=== PATIENT | male | born 1940 | race Caucasian/White ===

== ENCOUNTER → 2022-05-20 14:57 | Outpatient (CLI) | payer OTHER, SELFPAY ==
--- NOTE | 2022-05-20 | DI.CT.S_ITS ---
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 Sagittal and coronal reformats were then constructed. For radiation dose reduction, the following was used: automated exposure control. COMPARISON: [facility], , CT L SPINE WITHOUT CONTRAST, 07/08/2021, 11:10. FINDINGS: Image quality: Excellent. Bones: There is generalized osteopenia. Exaggerated thoracic kyphosis is noted. Moderate to severe compression deformities at the T9, T10, T12, L1, and L2 levels. There is retropulsion of bony fragments measuring up to 6 mm into the spinal canal at the superior aspect of L1, and possibly at L2 to a lesser extent. No other significant osseous retropulsion is seen. This results in moderate narrowing of the bony spinal canal at the T12-L1 level. No definite osteolytic or osteoblastic lesion is seen. Soft tissues: No paravertebral masses or hematomas. Visualized posteromedial lungs appear clear. Circumscribed hypodense lesion in the included lateral left hepatic lobe is most likely a cyst. Cardiac pacemaker leads are partially imaged. Coronary artery calcifications or coronary artery stents are present. IMPRESSION: Multiple moderate to severe vertebral body compression fractures involving T9-T10 and T12-L2. There is approximately 6 mm retropulsion of osseous fragments at the L1 level with moderate narrowing of the bony spinal canal. Compression fractures are of indeterminate age, but the more inferior fractures are new when compared to the lumbar spine CT from 07/08/2021. No definite lytic or blastic osseous lesion identified. Dictated by: Loco Alberto M.D. on 05/20/2022 at 16:22 Approved by: Loco Alberto M.D. on 05/20/2022 at 16:59
--- NOTE | 2022-05-20 15:02 | DI.MRI.S_ITS ---
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 COMPARISON: [facility], CT, CT THORACIC SPINE WO CON, 05/20/2022, 15:30. FINDINGS: Image quality: Excellent. Multiple mid to lower thoracic spine compression fractures results in exaggerated kyphosis. Vertebral body height and alignment is otherwise well maintained. Spinal cord has appropriate signal throughout. No paraspinal mass. As noted on the prior CT, there are compression fractures at T9, T10, T12, L1, L2. There is approximately 90% height loss at T9, 50% height loss at T10. Retropulsed fracture fragment at L1 is again noted. There is marrow edema present. No significant retropulsed fracture fragment at T9 or T10. There is a retropulsed fracture fragment at L1 in resulting in moderate central stenosis without cord compression. Degenerative disc disease results in mild central stenosis at T10-11, T11-12. IMPRESSION: Acute to subacute compression fractures at T9, T10, T12, L1 and L 2 with retropulsed fracture fragment at L1 resulting in moderate central stenosis without cord compression Approved by: Serafin Funez M.D. on 05/23/2022 at 10:53
--- NOTE | 2022-05-20 15:03 | DI.MRI.S_ITS ---
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 In cases with scoliosis, additional coronal T2 fast spin echo may be performed. COMPARISON: [facility], RG, CT L SPINE WITHOUT CONTRAST, 07/08/2021, 11:10. [facility], CT, CT LUMBAR SPINE WO CON, 05/20/2022, 15:30. FINDINGS: Image quality: Excellent. Alignment and Curvature: There is normal bony alignment. Bone Marrow: Large cystic structure in the S1 vertebral body is again noted with vertebral body height loss consistent with pathologic compression fracture. Edema in the T12, L1 and L2 compression fractures consistent with subacute fractures, probably osteopenic. Additionally a, there is fatty marrow replacement in the visualized S2 and S3 vertebral bodies such may reflect radiation therapy. Spinal Cord: Conus medullaris terminates at the L1 level. Visualized cord demonstrates normal signal and size. Paraspinous Soft Tissues: No paravertebral masses. T12-L1: Retropulsed fracture fragment at L1 results in moderate canal stenosis without cord compression. Moderate bilateral foraminal stenosis present. L1-L2: Retropulsed fracture fragment at L2 results in mild central stenosis. Moderate left and mild right foraminal stenosis present. L2-L3: Disc space is preserved. Mild circumferential disc bulge with mild central stenosis present. Moderate left and mild right foraminal stenosis related to hypertrophic facet joints. L3-L4: Disc space is preserved. Circumferential disc bulge, hypertrophic facet joints and ligamentum flavum laxity results in moderate to severe central stenosis. Moderate left and mild right foraminal stenosis L4-L5: A disc space is preserved. Circumferential disc bulge with hypertrophic facet joints and ligamentum flavum laxity results in severe central stenosis. Severe left and mild right foraminal stenosis L5-S1: Disc space is preserved. Posterior disc bulge and ligamentum flavum laxity results in moderate central stenosis. Moderate bilateral foraminal stenosis. IMPRESSION: 1. S1 cystic lesion with compression fracture, probably reflects with pathologic compression fracture. 2. T12, L1 and L2 compression fractures are stable from the prior with marrow edema limited to the superior endplates, more consistent with osteopenic compression fractures. Retropulsed fracture fragment at L1 results in moderate central stenosis. 3. Multilevel degenerative disc disease and arthropathy results in moderate to severe L3-4 and severe L4-5 central stenosis. Approved by: Serafin Funez M.D. on 05/23/2022 at 10:45
--- NOTE | 2022-05-20 15:04 | DI.CT.S_ITS ---
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 Sagittal and coronal reformats were constructed. For radiation dose reduction, the following was used: automated exposure control. COMPARISON: [facility], , CT L SPINE WITHOUT CONTRAST, 07/08/2021, 11:10. FINDINGS: Image quality: Excellent. Bones: Severe generalized osteopenia. Moderate to severe compression deformities at T12, L1, and L2 are new when compared to the lumbar spine CT from 07/08/2021. Retropulsion of bony fragments is seen at the superior aspect of L1 measuring approximately 6 mm. There is also approximately 3 mm retropulsion of bony fragment of the superior aspect of L2. Lucency is again seen within the S1 vertebral body with new superimposed superior endplate compression fracture and loss of vertebral body height. There is normal bony alignment. No acute vertebral body compression fractures. No suspicious lytic or blastic bony lesions. No pars defects. T12-L1: Retropulsion of L1 fracture fragment results in moderate narrowing of the bony spinal canal that is eccentric towards the left. There is moderate bilateral neural foraminal narrowing. L1-L2: Mild retropulsion of L2 fracture fragment is seen that is eccentric towards the left and results in mild narrowing of the bony spinal canal there is mild to moderate narrowing of the bilateral neural foramina. L2-L3: Mild circumferential disc bulging and mild facet hypertrophy, which result in mild narrowing of the spinal canal as well as mild to moderate bilateral neural foraminal narrowing. L3-L4: Mild circumferential disc bulging as well as mild bilateral facet hypertrophy and buckling of the ligamentum flavum, which result in unchanged moderate to severe narrowing of the spinal canal as well as moderate bilateral neural foraminal narrowing. L4-L5: Circumferential disc bulging as well as facet hypertrophy and buckling of the ligamentum flavum result in moderate to severe narrowing of the spinal canal as well as moderate to severe left and moderate right neural foraminal narrowing. L5-S1: Circumferential disc bulging is seen as well as mild bilateral facet hypertrophy and buckling of the ligamentum flavum. Findings result in moderate narrowing of the spinal canal and moderate to severe left and moderate right neural foraminal narrowing. Soft tissues: No retroperitoneal masses or hematomas. Visualized aorta is normal in caliber. IMPRESSION: 1. New moderate to severe compression fractures at T12 through L2. Retropulsion of osseous fragments is seen at the superior L1 level measuring 6 mm and the superior L2 level measuring 3 mm. 2. Pathologic compression fracture of the S1 vertebral body is new when compared to the CT from 07/08/2021, with mild loss of vertebral body height. Lucent lesion is again seen throughout the majority of the S1 vertebral body. 3. New moderate spinal canal narrowing is seen at the level of the L1 compression fracture. Additional multilevel degenerative disc disease and facet hypertrophy is again seen that result in multifocal spinal canal stenosis that is most severe at the L4-5 level, but is not significantly changed when compared to the CT from 07/08/2021. 4. Multilevel neural foraminal narrowing is again seen that has progressed at the T12-L1 and L1-2 levels. Dictated by: Loco Alberto M.D. on 05/20/2022 at 16:32 Approved by: Loco Alberto M.D. on 05/20/2022 at 16:57
== END ==
PROVIDERS: PCP Physician Assistant; Referring Provider Anesthesiology; Visit Provider Anesthesiology
DX: M48.55XA Collapsed vertebra, not elsewhere classified, thoracolumbar region, initial encounter for fracture (principal); M54.50 Low back pain, unspecified; M48.56XA Collapsed vertebra, not elsewhere classified, lumbar region, initial encounter for fracture; M84.48XA Pathological fracture, other site, initial encounter for fracture; M51.36 Other intervertebral disc degeneration, lumbar region; C79.9 Secondary malignant neoplasm of unspecified site
CPT/HCPCS: 72128; 72131; 72146; 72148